=== PATIENT | female | born 1955 | race Caucasian/White ===

== ENCOUNTER 2019-02-21 12:13 | Outpatient (CLI) | payer OTHER | END 2019-02-21 20:21 | disposition home or self-care (01) | LOC: SMI 12:13 | PROVIDERS: ATTEND Internal Medicine Geriatric Medicine | DX: G43.009 Migraine without aura, not intractable, without status migrainosus (principal); G24.9 Dystonia, unspecified | CPT/HCPCS: 70551 ==

== ENCOUNTER 2019-03-08 10:12 | Day surgery (SDC) | payer OTHER ==
[~2019-03-08] VITALS: Ht 167.6 cm; Wt 120.2 kg
[2019-03-08] MEDS ORDERED: MIDAZOLAM HCL 5 MG/5 ML VIAL IVP ONE (12:35)
[2019-03-08] MEDS ORDERED: BUPIVACAINE /PF 0.5% 30 ML VIAL INJ ONE (12:35)
[2019-03-08] MEDS ORDERED: NS IRRIG SOLN 1000 ML IR ONE (12:35)
[2019-03-08] MEDS ORDERED: LR 1,000 ML IV.SOLN IV ONE (12:35)
[2019-03-08] MEDS ORDERED: PROPOFOL 200MG/ 20ML VIAL (DIPRIVAN) IV ONE (12:35)
[2019-03-08] MEDS ORDERED: NACL 0.9% 1,000 ML IV SCH (12:56)
[2019-03-08] MEDS ORDERED: HYDROcodone/ACETAMIN 5-325 MG TAB (NORCO/ VICODIN) PO PRN (13:00)
[2019-03-08] MEDS ORDERED: ONDANSETRON HCL 4 MG/2 ML VIAL IVP PRN (13:00)
[2019-03-08] MEDS ORDERED: ACETAMINOPHEN 325 MG TABLET PO PRN (13:00)
[2019-03-08] MEDS ORDERED: LR 1,000 ML IV SCH (13:08)
[2019-03-08] MEDS ORDERED: METOCLOPRAMIDE HCL 10 MG/2 ML VIAL IVP PRN (13:15)
[2019-03-08 13:43] VITALS: BP_SYST 128
== END 2019-03-08 14:00 | disposition home or self-care (01) ==
LOC: SDS 10:12
PROVIDERS: ATTEND Surgery
DX: M71.341 Other bursal cyst, right hand (principal); I10 Essential (primary) hypertension; E66.3 Overweight; G47.33 Obstructive sleep apnea (adult) (pediatric); K21.9 Gastro-esophageal reflux disease without esophagitis; E11.9 Type 2 diabetes mellitus without complications; M19.90 Unspecified osteoarthritis, unspecified site; E78.5 Hyperlipidemia, unspecified; E66.9 Obesity, unspecified; G43.909 Migraine, unspecified, not intractable, without status migrainosus
CPT/HCPCS: 11750; 88304; J2250; J2704; J2765; J3490; J7120; 88300

== ENCOUNTER 2021-10-15 08:45 | Outpatient (CLI) | payer OTHER | END 2021-10-15 21:32 | disposition home or self-care (01) | LOC: SMI 08:45 | PROVIDERS: ATTEND Internal Medicine Geriatric Medicine | DX: K44.9 Diaphragmatic hernia without obstruction or gangrene (principal); K83.1 Obstruction of bile duct | CPT/HCPCS: 74181 ==